=== PATIENT | female | born 1985 | race Caucasian/White ===

== ENCOUNTER 2016-07-10 12:58 | Emergency (ER) | payer OTHER ==
[~2016-07-10] VITALS: Ht 162.6 cm; Wt 87.0 kg
[2016-07-10 13:05] VITALS: TEMP 36.7; Ht 162.6 cm; Wt 87.0 kg
[2016-07-10] MEDS ORDERED: ALBUT/IPRATROP 3MG/0.5MG NEB 3 ML VIAL INH STA (13:16)
[2016-07-10] MEDS ORDERED: METHYLPREDNISOLONE 125 MG VIAL IV STA (13:41)
--- NOTE | 2016-07-10 13:55 | DIAGNOSTIC IMAGING REPORT ---
CHEST ONE VIEW PORTABLE CLINICAL HISTORY: Shortness of breath. Asthma. COMPARISON STUDY: No previous studies for comparison. FINDINGS: The cardiac and mediastinal contours are normal. There is no evidence of focal pulmonary consolidation. There is no evidence of failure. No pleural effusions are visualized.[ IMPRESSION: No active disease in the chest. Electronically signed by: Theo Elilott M.D. 07/10/2016 1:53 PM Dictated Date/Time: 07/10/2016 1:53 PM
--- NOTE | 2016-07-10 14:08 | EMERGENCY ROOM VISIT NOTE ---
History Report prepared by Alfredo: Jeanne Lee Under the Supervision of: Dr. Michael Kasepr D.O. First contact with patient: 13:03 Chief Complaint: RESPIRATORY PROBLEMS Stated Complaint: ASTHMA History of Present Illness The patient is a 30 year old female who presents to the Emergency Room with complaints of persistent SOB starting 5 days ago. The history was obtained from her due to a language barrier. She has a history of asthma since age 12. Her asthma is usually well controlled. She has a nebulizer and inhaler at home which has been using hourly at home for the past 5 days. They are in the process of scheduling an appointment with pulmonology. She reports fever, chest tightness, wheezing, and a cough productive of a yellow mucous. Her children were sick last week with a GI bug. She denies any recent travel or other medical problems. Source of History: spouse/significant other Onset: 5 days ago Position: other (global) Quality: other (SOB) Timing: other (persistent) Associated Symptoms: + chest pain (tightness), + cough, + fevers Note: Pt reports wheezing. Review of Systems See HPI for pertinent positives & negatives. A total of 10 systems reviewed and were otherwise negative. Past Medical & Surgical Medical Problems: (1) Asthma Family History Pt reports no pertinent family history. Social History Smoking Status: Never Smoker Marital Status: Housing Status: lives with family Occupation Status: unemployed Current/Historical Medications Scheduled Budesonide/Formoterol Fumarate (Symbicort 160/4.5 Inhaler ), 2 PUFFS INH BID Budesonide/Formoterol Fumarate (Symbicort 80/4.5 Inhaler), 2 PUFFS INH BID Ipratropium-Albuterol (Duoneb), 1 TREATMENT INH Q4H Prednisone (Prednisone), 2 TAB PO DAILY Allergies Coded Allergies: No Known Allergies (Unverified , 07/10/16) Physical Exam Vital Signs Date Time Temp Pulse Resp B/P Pulse Ox O2 Delivery O2 Flow Rate FiO2 07/10/16 14:18 92 07/10/16 14:16 100 18 104/65 100 Room Air 07/10/16 13:35 Room Air 07/10/16 13:05 36.7 105 18 127/78 97 Room Air Physical Exam CONSTITUTIONAL/VITAL SIGNS: Reviewed / noted above. GENERAL: Non-toxic in appearance. INTEGUMENTARY: Warm, dry, and Norco. HEAD: Normocephalic. EYES: without scleral icterus or trauma. ENT/OROPHARYNX: clear and moist. LYMPHADENOPATHY/NECK: Is supple without lymphadenopathy or meningismus. RESPIRATORY: Expiratory wheezing bilaterally. CARDIOVASCULAR: Regular rate and rhythm. GI/ABDOMEN: Soft and nontender. No organomegaly or pulsatile mass. No rebound or guarding. Normal bowel sounds. EXTREMITIES: Warm and well perfused. BACK: No CVA tenderness. NEUROLOGICAL: Intact without focal deficits. PSYCHIATRIC: normal affect. MUSCULOSKELETAL: Normally developed with good muscle tone. Medical Decision & Procedures ER Provider Diagnostic Interpretation: X ray results and stated below per my interpretation and radiology interpretation. CHEST ONE VIEW PORTABLE CLINICAL HISTORY: Shortness of breath. Asthma. COMPARISON STUDY: No previous studies for comparison. FINDINGS: The cardiac and mediastinal contours are normal. There is no evidence of focal pulmonary consolidation. There is no evidence of failure. No pleural effusions are visualized.[ IMPRESSION: No active disease in the chest. Electronically signed by: Theo Elliott M.D. 07/10/2016 1:53 PM Dictated Date/Time: 07/10/2016 1:53 PM Laboratory Results Test 07/10/16 13:30 Bedside D-Dimer 316 ng/mlFEU (0-450) Bedside Troponin I 0.000 ng/ml (0-0.045) Medications Administered Medications (Trade) Dose Ordered Sig/Juancho Route Start Time Stop Time Status Last Admin Dose Admin Albuterol/ Ipratropium (Duoneb) 3 ml NOW STAT INH 07/10/16 13:16 07/10/16 13:17 DC 07/10/16 13:37 3 ML Methylprednisolone Sodium Succinate (Solu-Medrol IV) 125 mg NOW STAT IV 07/10/16 13:41 07/10/16 13:42 DC 07/10/16 14:13 125 MG ECG Indication: SOB/dyspnea Rate (beats per minute): 82 Rhythm: normal sinus Findings: no ectopy, other (no acute injury) ED Course 1311: At this time the patient was evaluated by the medical student. The students findings were discussed with me. We discussed a possible treatment plan and differential diagnoses for the patient. 1316: Duoneb 3 ml INH. 1341: Solu-Medrol IV 125 mg IV. 1351: Previous medical records were reviewed. The patient was evaluated in room C6. A complete history and physical examination was performed. 1426: On reevaluation, the patient is resting comfortably. I discussed the results and findings with the patient's . He verbalized agreement of the treatment plan. She was discharged home. Medical Decision the differential was considered includes acute myocardial infarction, acute coronary syndrome, myocarditis, pericarditis, pericardial effusions /tamponad, esophageal perforation, pulmonary embolism, pneumonia, pneumothorax, cardiomyopathy, congestive heart, anemia , COPD/asthma exacerbation. This is a 30-year-old female who presents to the ED with a chief complaint of shortness of breath and wheezing. She has a nebulizer at home. She ran out of her orange inhaler 5 days ago. She is to see a physical therapist clinic director and [place] in the near future. She reported some chest tightness and wheezing as well as a productive cough. Her physical exam reveals expiratory wheezing throughout. Her vital signs are stable. She is not hypoxic or tachycardic. Troponin was negative. A d-dimer was negative. Chest x-ray, per my review and the radiologist as negative for acute disease. The patient was treated with a DuoNeb treatment. She was given IV Solu-Medrol. Symptoms improved some. She appears to be relatively comfortable with regards to her breathing. She'll be discharged on prednisone. She was instructed to use her nebulizer every 2-4 hours as needed at home. Impression Primary Impression: Exacerbation of asthma Scribe Attestation The scribe's documentation has been prepared under my direction and personally reviewed by me in its entirety. I confirm that the note above accurately reflects all work, treatment, procedures, and medical decision making performed by me. Departure Information Dispostion Home / Self-Care Prescriptions Prednisone (Prednisone) 20 Mg Tab 2 TAB PO DAILY for 5 Days, #10 TAB Prov: Michael Kasper D.O. 07/10/16 Budesonide/Formoterol Fumarate (Symbicort 80/4.5 Inhaler) Aero 2 PUFFS INH BID for 30 Days, #1 INHALER Prov: Michael Kasper D.O. 07/10/16 Referrals No Doctor, Assigned (PCP) Patient Instructions Asthma - [facility] Additional Instructions Your exam today reveals wheezing in the lungs. This is consistent with exacerbation of asthma. Prednisone as prescribed 40 mg, once daily for the next 5 days. Symbicort as prescribed twice a day. Continue using your albuterol nebulizer at home every 2-4 hours as needed for wheezing or shortness of breath. Follow-up with your habilitation training specialist as soon as possible.
[2016-07-10] MEDS ORDERED: SYMIN160 INH (14:20)
[2016-07-10] MEDS ORDERED: IPRASOL4 INH (14:20)
[2016-07-10] MEDS ORDERED: SYMIN/8045 INH (14:23)
[2016-07-10] MEDS ORDERED: PRED20TA PO (14:23)
[2016-07-10 14:36] VITALS: BP 104/65; PULSE 102; O2SAT 99
== END 2016-07-10 14:37 | disposition home or self-care (01) ==
LOC: C.EDB 13:00 → C.EDC 14:37
DX: J45.901 Unspecified asthma with (acute) exacerbation (principal)

== ENCOUNTER 2016-08-21 15:06 | Emergency (ER) | payer OTHER ==
[~2016-08-21] VITALS: Ht 165.1 cm; Wt 86.5 kg
[~2016-08-21 15:06] MED LIST: IPRASOL4 INH; SYMIN160 INH
[2016-08-21 15:15] VITALS: TEMP 37.1; Ht 165.1 cm; Wt 86.5 kg
[2016-08-21] MEDS ORDERED: ALBUT/IPRATROP 3MG/0.5MG NEB 3 ML VIAL INH STA ×2 (16:29→17:32)
[2016-08-21] MEDS ORDERED: METHYLPREDNISOLONE 125 MG VIAL IV STA (16:29)
[2016-08-21 16:38] VITALS: O2SAT 96
[2016-08-21 16:57] LABS: BASO % 0.7 %; BASO ABS # 0.04 K/uL (0-0.2); COMPLETE YES; EOS % 12.1 %; HEMATOCRIT 39.4 % (37-47); IG% 0.2 %; LYMPH % 41.1 %; LYMPH ABS # 2.34 K/uL (1.2-3.4); MEAN CELL VOLUME 74.6 fL (80-100); MEAN CORPUSCULAR HEMOGLOBIN 23.7 pg (25-34); MEAN CORPUSCULAR HGB CONC 31.7 g/dl (32-36); MEAN PLATELET VOLUME 11.5 fL (7.4-10.4); NEUT % 36.9 %; PLATELET COUNT 251 K/uL (130-400); RED BLOOD COUNT 5.28 M/uL (4.2-5.4); WHITE BLOOD COUNT 5.69 K/uL (4.8-10.8)
[2016-08-21 17:14] LABS: BUN/CREATININE RATIO 11.1 (10-20); CALCIUM 8.3 mg/dl (8.5-10.1); CREATININE 0.67 mg/dl (0.60-1.20); POTASSIUM 3.6 mmol/L (3.5-5.1)
[2016-08-21 17:17] LABS: ALB/GLOB RATIO 1.1 (0.9-2); PREG INTERNAL NEGATIVE QC NEG CLEAR BACKGROUND; PREG INTERNAL POSITIVE QC POS CONTROL LINE
[2016-08-21] MEDS ORDERED: PRED50TA PO (18:51)
[2016-08-21] MEDS ORDERED: SYMIN160 INH (18:51)
[2016-08-21] MEDS ORDERED: PRVHFAIN INH (18:51)
[2016-08-21] MEDS ORDERED: ALBINS/ INH (18:51)
[2016-08-21 18:59] VITALS: BP 120/87; PULSE 98; O2SAT 99
--- NOTE | 2016-08-21 20:50 | EMERGENCY ROOM VISIT NOTE ---
History Report prepared by Alfredo: Emmett Veras Under the Supervision of: Dr. Gaurav Veloz M.D. First contact with patient: 16:16 Chief Complaint: RESPIRATORY PROBLEMS Stated Complaint: ASTHMA Nursing Triage Summary: Patient presents with family with c/o asthma exacerbation that began yesterday History of Present Illness The patient is a 30 year old female who presents to the Emergency Room with complaints of constant, tight breathing beginning yesterday. The patient's states that the patient has a long history of asthma. He notes that the last time she had an episode she was placed on steroids and it helped. The states that she currently uses a nebulizer and Symbicort at home, but she is running out of her supply. He reports, that ever since she was young, she has left leg pain that is a result of the asthma. He notes that they are going home to [facility] within the next four weeks. The states that they are in [place] because he is enrolled in a Masters Program at [employer]. The notes that the patient goes to an asthma specialist every Friday for treatment. He reports that she does not have a PCP. Pt denies LOC , headache, fevers, chills, diaphoresis, visual changes, neck pain, chest pain, nausea, vomiting, abdominal pain, back pain, melena, hematochezia, urinary symptoms, numbness, weakness, lymphadenopathy, rash, or other complaints. Source of History: spouse/significant other Onset: yesterday Position: chest (breathing) Quality: other (tight) Timing: constant Note: Associated symptoms: left-sided leg pain Review of Systems See HPI for pertinent positives and negatives. A total of ten systems were reviewed and were otherwise negative. Past Medical & Surgical Medical Problems: (1) Asthma Family History No pertinent family history stated. Social History Smoking Status: Never Smoker Marital Status: Housing Status: lives with family Occupation Status: unemployed Current/Historical Medications Scheduled Albuterol (Ventolin Hfa), 2 PUFFS INH QID Budesonide/Formoterol Fumarate (Symbicort 160/4.5 Inhaler ), 2 PUFFS INH BID Budesonide/Formoterol Fumarate (Symbicort 160/4.5 Inhaler ), 2 PUFFS INH BID Ipratropium-Albuterol (Duoneb), 1 TREATMENT INH Q4H Prednisone (Prednisone), 50 MG PO DAILY Scheduled PRN Albuterol Sulf (Proventil 0.083% 2.5MG/3ML), 2.5 MG INH QID PRN for Wheezing Allergies Coded Allergies: No Known Allergies (Unverified , 07/10/16) Physical Exam Vital Signs Date Time Temp Pulse Resp B/P Pulse Ox O2 Delivery O2 Flow Rate FiO2 08/21/16 18:59 98 18 120/87 99 08/21/16 17:44 89 18 106/84 96 Room Air 08/21/16 16:38 96 Room Air 08/21/16 16:25 107 20 120/100 97 Room Air 08/21/16 15:15 37.1 118 20 96 Room Air Physical Exam GENERAL: Awake, alert, well-appearing, in no distress HENT: Normocephalic, atraumatic. Oropharynx unremarkable. EYES: Normal conjunctiva. Sclera non-icteric. NECK: Supple. No nuchal rigidity. FROM. No JVD. RESPIRATORY: Inspiratory and expiatory wheezing CARDIAC: normal rhythm. Extremities warm and well perfused. Pulses equal. Borderline tachycardic. ABDOMEN: Soft, non-distended. No tenderness to palpation. No rebound or guarding. No masses. RECTAL: Deferred. MUSCULOSKELETAL: Chest examination reveals no tenderness. The back is symmetrical on inspection without obvious abnormality. There is no CVA tenderness to palpation. No joint edema. LOWER EXTREMITIES: Calves are equal size bilaterally and non-tender. Patel tenderness. No edema. No discoloration. NEURO: Normal sensorium. No sensory or motor deficits noted. SKIN: No rash or jaundice noted. Medical Decision & Procedures Laboratory Results 08/21/16 16:30 Red Blood Count 5.28, Mean Corpuscular Volume 74.6, Mean Corpuscular Hemoglobin 23.7, Mean Corpuscular Hemoglobin Concent 31.7, Mean Platelet Volume 11.5, Neutrophils (%) (Auto) 36.9, Lymphocytes (%) (Auto) 41.1, Monocytes (%) (Auto) 9.0, Eosinophils (%) (Auto) 12.1, Basophils (%) (Auto) 0.7, Neutrophils # (Auto ) 2.10, Lymphocytes # (Auto) 2.34, Monocytes # (Auto) 0.51, Eosinophils # (Auto ) 0.69, Basophils # (Auto) 0.04 08/21/16 16:30 Test 08/21/16 16:30 White Blood Count 5.69 K/uL (4.8-10.8) Red Blood Count 5.28 M/uL (4.2-5.4) Hemoglobin 12.5 g/dL (12.0-16.0) Hematocrit 39.4 % (37-47) Mean Corpuscular Volume 74.6 fL (80-100) Mean Corpuscular Hemoglobin 23.7 pg (25-34) Mean Corpuscular Hemoglobin Concent 31.7 g/dl (32-36) Platelet Count 251 K/uL (130-400) Mean Platelet Volume 11.5 fL (7.4-10.4) Neutrophils (%) (Auto) 36.9 % Lymphocytes (%) (Auto) 41.1 % Monocytes (%) (Auto) 9.0 % Eosinophils (%) (Auto) 12.1 % Basophils (%) (Auto) 0.7 % Neutrophils # (Auto) 2.10 K/uL (1.4-6.5) Lymphocytes # (Auto) 2.34 K/uL (1.2-3.4) Monocytes # (Auto) 0.51 K/uL (0.11-0.59) Eosinophils # (Auto) 0.69 K/uL (0-0.5) Basophils # (Auto) 0.04 K/uL (0-0.2) RDW Standard Deviation 43.6 fL (36.4-46.3) RDW Coefficient of Variation 16.0 % (11.5-14.5) Immature Granulocyte % (Auto) 0.2 % Immature Granulocyte # (Auto) 0.01 K/uL (0.00-0.02) Anion Gap 5.0 mmol/L (3-11) Est Creatinine Clear Calc Drug Dose 134.6 ml/min Estimated GFR () 137.7 Estimated GFR (Non- 118.8 BUN/Creatinine Ratio 11.1 (10-20) Calcium Level 8.3 mg/dl (8.5-10.1) Total Bilirubin 0.4 mg/dl (0.2-1) Aspartate Amino Transf (AST/SGOT) 13 U/L (15-37) Alanine Aminotransferase (ALT/SGPT) 18 U/L (12-78) Alkaline Phosphatase 65 U/L (45-117) Total Protein 7.2 gm/dl (6.4-8.2) Albumin 3.7 gm/dl (3.4-5.0) Globulin 3.5 gm/dl (2.5-4.0) Albumin/Globulin Ratio 1.1 (0.9-2) Human Chorionic Gonadotropin, Qual NEG (NEG) Laboratory results reviewed by me Medications Administered Medications (Trade) Dose Ordered Sig/Juancho Route Start Time Stop Time Status Last Admin Dose Admin Albuterol/ Ipratropium (Duoneb) 3 ml NOW STAT INH 08/21/16 16:29 08/21/16 16:31 DC 08/21/16 16:37 3 ML Methylprednisolone Sodium Succinate (Solu-Medrol IV) 125 mg NOW STAT IV 08/21/16 16:29 08/21/16 16:31 DC 08/21/16 16:37 125 MG Albuterol/ Ipratropium (Duoneb) 3 ml NOW STAT INH 08/21/16 17:32 08/21/16 17:34 DC 08/21/16 17:44 3 ML ECG Indication: SOB/dyspnea Rate (beats per minute): 88 Rhythm: normal sinus Findings: no acute ischemic change, no ectopy ED Course 162: The patient was evaluated in room A04B. A complete history and physical exam was performed. 1629: Ordered Solu-Medrol IV 125mg IV, Duoneb 3ml INH 1732: Ordered Duoneb 3ml INH 1815: I reevaluated the patient and discussed her exam findings with her. She is doing much better. 1899: I reevaluated the patient. Discussed results and discharge instructions: the patient's verbalized understanding and agreement. The patient is ready for discharge. Medical Decision Triage Nursing notes reviewed. The patient's presentation and history were concerning for breathing difficulties and history of asthma. Etiologies such as reactive airway disease, pneumonia, COPD,CHF, cardiac ischemia, pulmonary embolism, pneumothorax, musculoskeletal, infections, gastrointestinal, as well as others were entertained. The patient was evaluated. She was wheezing on examination. She notes a long history of asthma since childhood. The patient was given a nebulizer treatment and Solu-Medrol. She was feeling better. She was given a second treatment. On reassessment the patient had clearing of her wheezing. She felt well and desired discharge. Her laboratory testing was unremarkable. The patient declined chest x-ray imaging.I gave my usual and customary discussion regarding this issue. The patient is out of her albuterol nebulizer solution. She does not have a Proventil rescue inhaler. Patient is taking Symbicort but is almost out. The patient will be placed on prednisone for 4 days. She will use albuterol MDI. She was also given a prescription for nebulizer solution. The patient was also given a Symbicort inhaler prescription. The patient wishes to follow-up with [facility] pulmonology. She was referred. This seems to be most consistent with a asthma exacerbation given her long history of the same and response to treatment. By the evaluation outlined above other emergent etiologies such as those listed in the differential, as well as others, were deemed relatively unlikely. The patient and were informed about the findings as listed above. All questions were answered and they were pleased with the treatment. Return instructions were outlined and the patient was discharged in stable condition. The patient was referred to pulmonology for follow-up for a recheck of the current condition. The chart was completed utilizing [employer] Speech voice recognition software. Grammatical errors, random word insertions, pronoun errors, and incomplete sentences are an occasional consequence of this system due to software limitations, ambient noise, and hardware issues. Any formal questions or concerns about the content, text, or information contained within the body of this dictation should be directly addressed to the physician for clarification. Impression Primary Impression: Reactive airway disease Scribe Attestation The scribe's documentation has been prepared under my direction and personally reviewed by me in its entirety. I confirm that the note above accurately reflects all work, treatment, procedures, and medical decision making performed by me. Departure Information Dispostion Home / Self-Care Prescriptions Budesonide/Formoterol Fumarate (Symbicort 160/4.5 Inhaler ) Aero 2 PUFFS INH BID, #1 INHALER Prov: Gaurav Veloz MD 08/21/16 Albuterol Sulf (PROVENTIL 0.083% 2.5MG/3ML) 2.5 Mg/3 Ml Nebu 2.5 MG INH QID Y for Wheezing, #1 EA 1 Refill Prov: Gaurav Veloz MD 08/21/16 Albuterol (Ventolin Hfa) 60 Puffs/5400 Mcg Aers 2 PUFFS INH QID for 5 Days, #1 INHALER Prov: Gaurav Veloz MD 08/21/16 Prednisone (Prednisone) 50 Mg Tab 50 MG PO DAILY for 4 Days, #4 TAB Prov: Gaurav Veloz MD 08/21/16 Referrals No Doctor, Assigned (PCP) Forms HOME CARE DOCUMENTATION FORM, IMPORTANT VISIT INFORMATION, WORK / SCHOOL INSTRUCTIONS Patient Instructions My [facility] Additional Instructions ASTHMA INSTRUCTIONS: Symbicort inhaler as prescribed. Albuterol Inhaler: Take 2 puffs four times daily for five days, then as needed. or Albuterol nebulizer every 4-6 hours as needed for asthma attack. Prednisone 50mg: Once daily until the prescription is finished. It is best to take this earlier in the day as some patients note occasional difficulty falling asleep when taken in the late evening. Acetaminophen(Tylenol) may be used for fever or pain. Use 1000mg every six hours as needed. Avoid using more than 4000mg in a 24 hour period. Rest and drink plenty of fluids. Avoid smoke/smoking, fumes, dust, or any triggers in the past that may have affected your breathing. Continue current medications. Return to the ER for chest pain, difficulty breathing, fevers, vomiting, worsening of your condition, or as needed. Follow up with [facility] pulmonology this week for a recheck of your current condition. The number is listed below under Dr. Keith.
== END 2016-08-21 19:00 | disposition home or self-care (01) ==
LOC: C.EDB 15:08 → C.EDA 19:00
DX: J45.909 Unspecified asthma, uncomplicated (principal); Z79.899 Other long term (current) drug therapy

== ENCOUNTER 2016-09-04 00:17 | Emergency (ER) | payer OTHER ==
[~2016-09-04] VITALS: Ht 167.6 cm; Wt 84.8 kg
[~2016-09-04 00:17] MED LIST changes: +ALBINS/ INH
[2016-09-04 00:33] VITALS: TEMP 36.7; Ht 167.6 cm; Wt 84.8 kg
[2016-09-04] MEDS ORDERED: ALBINS/ INH (00:46)
[2016-09-04] MEDS ORDERED: IBUP-103 PO (00:47)
[2016-09-04] MEDS ORDERED: ALBUT/IPRATROP 3MG/0.5MG NEB 3 ML VIAL INH STA ×2 (01:06→01:59)
[2016-09-04] MEDS ORDERED: DEXAMETHASONE SOD INJ 10 MG/ML VIAL PO ONE (01:15)
[2016-09-04] MEDS ORDERED: FLUTICASONE/SALMETEROL (ADVAIR) 500/50 INH 14 PUFF INH STA (01:17)
[2016-09-04 01:38] VITALS: O2SAT 97
[2016-09-04] MEDS ORDERED: PRED50TA PO (02:24)
--- NOTE | 2016-09-04 02:24 | EMERGENCY ROOM VISIT NOTE ---
History First contact with patient: 00:38 Chief Complaint: RESPIRATORY PROBLEMS Stated Complaint: ASTHMA Nursing Triage Summary: pt presents to main ED with . to translate for pt. reports problems with asthma for "a long time." states it has been worse for 4 days. reports coughing up "a lot." reports sob and bilateral shoulder/upper chest pain. pt has hx asthma. pt alert and oriented x4. pt breathing regularly and independently. History of Present Illness The patient is a 30 year old female who presents to the Emergency Room with complaints of cough and wheezing for the past few days who has asthma. This is her third exacerbation this month. She has not seen a motor scooter mechanic. Patient complains of cough and wheezing. No fevers. She's had nighttime coughing and daytime coughing with using her nebulizers with minimal improvement of symptoms. Patient denies fever, chills, productive cough, abdominal pain, leg pain or swelling. Patient is flying back to [place] next week for [place] without. She has been fasting. Review of Systems See HPI for pertinent positives & negatives. A total of 10 systems reviewed and were otherwise negative. Past Medical/Surgical History Medical Problems: (1) Asthma Social History Smoking Status: Never Smoker Smokeless Tobacco Use: No Alcohol Use: none Drug Use: none Marital Status: Housing Status: lives with family Occupation Status: unemployed Current/Historical Medications Scheduled Albuterol Sulf (Proventil 0.083% 2.5MG/3ML), 2.5 MG INH QID Budesonide/Formoterol Fumarate (Symbicort 160/4.5 Inhaler ), 2 PUFFS INH BID Scheduled PRN Ibuprofen Tab (Advil), 200-600 MG PO DIRECTED PRN for Pain or Fever Allergies Coded Allergies: No Known Allergies (Unverified , 09/04/16) Physical Exam Vital Signs Date Time Temp Pulse Resp B/P Pulse Ox O2 Delivery O2 Flow Rate FiO2 09/04/16 01:38 97 Room Air 09/04/16 01:38 93 18 113/70 97 Room Air 09/04/16 01:17 Room Air 09/04/16 00:33 36.7 96 20 118/77 98 Room Air Physical Exam PHYSICAL EXAM: Vital Signs: Reviewed Nurse's notes. Oxygen saturation was 98% on room air. GENERAL: Pleasant female, Alert, oriented and coherent. The patient is able to speak in complete sentences. NECK: Supple, non-tender. CHEST : Symmetrical expansion. no retractions no accessory muscle use. HEART: Regular rate and normal heart sounds, no murmur, gallop or rub. LUNGS: Breath sounds equal but significantly diminished in intensity on both sides. Bilateral wheezes heard but no rales or pleuritic rub. SKIN: The skin was without rashes, erythema, edema, or bruising. There is no tenting of the skin. Capillary reflex less than 2 seconds. HEAD: Normocephalic atraumatic. EARS: External auditory canals clear, tympanic membranes pearly cain without erythema or effusion bilaterally. EYES: Pupils equal round and reactive to light and accommodation. Conjunctivae without injection, sclerae without icterus. Extraocular movements intact. NOSE: Patent, turbinates without inflammation or discharge. No sinus tenderness. MOUTH: Mucous membranes moist. Pharynx without erythema or exudate. Uvula midline. Airway patent. Tongue does not deviate. ABDOMEN: Positive bowel sounds x 4. Normal tympanic percussion. Soft, nontender, without masses or organomegaly. Rios sign negative. No guarding or rebound tenderness. MUSCULOSKELETAL: No muscle atrophy, erythema, or edema noted. NEURO: Patient was alert and oriented to person place and time. Normal sensation to light and sharp touch. No focal neurological deficits. Medical Decision & Procedures Medications Administered Medications (Trade) Dose Ordered Sig/Juancho Route Start Time Stop Time Status Last Admin Dose Admin Albuterol/ Ipratropium (Duoneb) 3 ml NOW STAT INH 09/04/16 01:06 09/04/16 01:08 DC 09/04/16 01:13 3 ML Dexamethasone Sodium Phosphate (Decadron Inj) 10 mg NOW ONCE PO 09/04/16 01:15 09/04/16 01:16 DC 09/04/16 01:13 10 MG Salmeterol Xinafoate/ Fluticasone (Advair Diskus 500/50 Inh) 1 puff NOW STAT INH 09/04/16 01:17 09/04/16 01:18 DC 09/04/16 01:36 1 PUFF Albuterol/ Ipratropium (Duoneb) 3 ml NOW STAT INH 09/04/16 01:59 09/04/16 02:00 DC 09/04/16 02:05 3 ML ED Course Prior records/ancillary studies reviewed. Triage Nursing notes reviewed. Additional history obtained from the family. The patient's history was concerning for respiratory difficulties. Differential diagnosis: Etiologies such as infections, reactive airway disease, pneumonia, pneumothorax , COPD, CHF, cardiac ischemia, pulmonary embolism, musculoskeletal, gastrointestinal, as well as others were entertained. Physical examination: As above. ER treatment provided: Nebulizer, Decadron, Advair On reassessment the patient felt better. Diagnostic interpretation by me: Deferred Consultation: A consultation was placed with the pharmacistCassie. The case was discussed and diagnostics were reviewed. Pharmacist agrees to starting Advair for the patient's moderate persistent symptoms of asthma as she is flying back this week to [facility] and will not be able to get in with pulmonology before she goes. This appears to be consistent with asthma exacerbation that is moderate persistent. Patient's been having nighttime symptoms 3-4 times a night and using her rescue inhaler and nebulizer daily. This is her third exacerbation that is brought to the ER this past month. Case management will help the patient make an appointment with pulmonology when she returns to [facility]. She is advised take medications as directed and to follow-up with pulmonology when she returns or here in the ER sooner for chest pain, difficulty breathing, fevers, worsening signs or symptoms or as needed. Patient was well-appearing. She had great improvement after being medicated as above. She was not hypoxic. She is speaking in full sentences. By the evaluation outlined above emergent etiologies such as CHF, cardiac ischemia, pulmonary embolism, pneumonia, pneumothorax, musculoskeletal, serious bacterial infections, as well as others were deemed relatively unlikely. The pt informed about the findings as listed above. All questions were answered and pleased with the treatment. Return instructions were outlined and the patient was discharged in stable condition. Outpatient prescription management: advair, prednisone Referral: The patient was referred back to their primary care physician and pulm for follow-up in 2 to 3 days for a recheck of the current condition. case reviewed with my Attending Medical Decision As above Impression Primary Impression: Asthma with acute exacerbation Departure Information Dispostion Home / Self-Care Condition GOOD Referrals No Doctor, Assigned (PCP) Patient Instructions My [facility] Additional Instructions Albuterol Inhaler: Take 2 puffs four times daily for five days, then as needed. Prednisone 50mg: Once daily until the prescription is finished. It is best to take this earlier in the day as some patients note occasional difficulty falling asleep when taken in the late evening. Advair 500 mg/50 m twice a day. Acetaminophen(Tylenol) may be used for fever or pain. Use 1000mg every six hours as needed. Avoid using more than 3000mg in a 24 hour period. (AND/OR) Ibuprofen(Motrin, Advil) may be used for fever or pain. Use 600mg every six hours as needed. Take with food. Avoid using more than 2400mg in a 24 hour period. Do not use 2400mg per day for more than three consecutive days without physician direction. Prolonged inappropriate use can lead to stomach upset or ulcers. Rest and drink plenty of fluids. Avoid smoke/smoking, fumes, dust, or any triggers in the past that may have affected your breathing. Continue current medications. Return to the ER for chest pain, difficulty breathing, fevers, vomiting, worsening of your condition, or as needed. Follow up with your primary physician and pulmonology this week for a recheck of your current condition. Problem Qualifiers Primary Impression: Asthma with acute exacerbation Asthma severity: moderate persistent Qualified Codes: J45.41 - Moderate persistent asthma with (acute) exacerbation
[2016-09-04] MEDS ORDERED: ALBUTEROL HFA 8 GM INHALER INH ONE (02:31)
[2016-09-04 02:36] VITALS: BP 114/65; PULSE 88; O2SAT 96
== END 2016-09-04 02:36 | disposition home or self-care (01) ==
LOC: C.EDB 00:18 → C.EDA 02:36
DX: J45.41 Moderate persistent asthma with (acute) exacerbation (principal)

== ENCOUNTER → 2016-12-03 | Outpatient (CLI) | payer OTHER ==
[~2016-12-03] MED LIST changes: +IBUP-103 PO; -IPRASOL4 INH
--- NOTE | 2016-12-03 14:57 | DIAGNOSTIC IMAGING REPORT ---
(CHEST) THORAX WITHOUT CLINICAL HISTORY: 30 years-old Female presenting with chronic cough. TECHNIQUE: Multidetector CT imaging of the chest was performed without the use of intravenous contrast. IV contrast: None. A dose lowering technique was used consistent with the principles of ALARA (as low as reasonably achievable). COMPARISON: Chest x-ray from 07/10/2016. CT DOSE (mGy.cm): The estimated cumulative dose is 181.87 mGy.cm. FINDINGS: Tailing Hand topogram: Unremarkable. On soft tissue windows, normal thyroid and thoracic inlet. No axillary, supraclavicular, hilar, or mediastinal lymphadenopathy. Normal aorta. Normal heart size. No pericardial or pleural effusion. Spleen top normal in size and only partially included within the [id number]. On lung windows, mild bronchial wall thickening. Subtle mosaic attenuation in the lower lobes could suggest small airways disease. Punctate 2 mm solid pulmonary nodule in the right middle lobe (series 4 image 139). Minimal tree-in-bud opacities noted in the left lung base in the lateral costophrenic sulcus. On bone windows, normal osseous structures. IMPRESSION: 1. Subtle findings of mild bronchial wall thickening subtle mosaic attenuation and lower lobes are this could be consistent with reactive airways disease, however, given the additional findings of minimal tree-in-bud opacities in the left lung base, infectious bronchiolitis should be considered. Atypical pathogens such as mycoplasma and mycobacterium avium intracellulare can result in an infectious bronchiolitis pattern among other etiologies. Electronically signed by: Leandro Jeter M.D. 12/03/2016 2:55 PM Dictated Date/Time: 12/03/2016 2:51 PM
== END | disposition home or self-care (01) ==
LOC: C.CTS 14:28
PROVIDERS: ATTEND Internal Medicine Critical Care Medicine
DX: R05 Cough (principal)

== ENCOUNTER 2022-02-22 08:50 | Inpatient (IN) ==
--- NOTE | 2022-02-19 10:56 | Anesthesiology Consultation ---
Date of Service February 19, 2022 Assessment & Plan (1) Encounter for pre-operative examination: - COVID screening: Per assessment on 02/19: No known COVID-19 positive contacts or current COVID-19 related symptoms. Travel screen negative. Patient vaccinated. At surgeon discretion if preop Covid testing being done. - Decision Support Analyst needed: Indonesian. L&D made aware. 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 History Surgery Operation Date: 02/22/22 08:50 Proposed Procedures p Section in LD (Delivery of Baby through Abdominal incision) - Vero Veloz MD, FACOG Height/Weight Height: 5 ft 4.96 in Weight: 83.461 kg Allergies Allergy/AdvReac Type Severity Reaction Status Date / Time No Known Allergies Allergy Verified 02/19/22 10:04 Medications Home Medications Medication Instructions Recorded Confirmed Last Taken budesonide-formoterol HFA 160 1 puff inhalation BID #10.2 grams 08/16/21 02/19/22 12/29/21 mcg-4.5 mcg/actuation aerosol inhaler (Symbicort) albuterol sulfate 90 mcg/actuation 2 puff inhalation Q4 PRN Wheezing 11/20/21 02/19/22 Unknown aerosol inhaler #8.5 grams tiotropium bromide 1.25 2 puff inhalation QAM 02/19/22 02/19/22 Unknown mcg/actuation mist for inhalation (Spiriva Respimat) Past Medical History Medical History Eosinophilic asthma size inconsistent with dates GERD without esophagitis History of COVID-19 Dx 07/03/20- end up having a miscarriage due to covid, no symptoms now Rhinitis Past Family History Family History Other No family history of adverse response to anesthesia Denies family history of Ovarian cancer Prostate cancer Breast cancer Colorectal cancer Past Surgical History Surgical History No pertinent past surgical history Social History Smoking Status: Never smoker Do You Dip or Chew Tobacco: No Hx Alcohol Use: No Hx Substance Use: No substance use type: does not use Testing Electrocardiogram Date: 07/08/21 Findings: + NSR @ (73)
[~2022-02-22 08:50] MED LIST changes: -ALBINS/ INH; +CITRIC ACID/SODIUM CITRATE 15 ML UDC PO SCH; -IBUP-103 PO; +LACTATED RINGER'S 1,000 ML IV SCH; -SYMIN160 INH; +ceFAZolin 3,000 MG in DEXTROSE 5% 50 ML IV SCH
[2022-02-22] MEDS ORDERED: OXYTOCIN 30 UNITS/500 ML BAG IV PRN ×3 (09:45→23:01)
[2022-02-22] MEDS ORDERED: LIDOCAINE 1% LOCAL 20 ML VIAL INFIL PRN (09:45)
[2022-02-22] MEDS ORDERED: ALBUTEROL HFA 8 GM INHALER INH PRN (09:47)
--- NOTE | 2022-02-22 10:11 | History & Physical Report ---
Date of Service February 22, 2022 Assessment & Plan (1) IUGR (intrauterine growth restriction) affecting care of mother: Plan: IUP at 39 weeks with IUGR now for IOL because now cephalic as confirmed again by ultrasound this morning begin pitocin augmentation epidural when requested anticipate vaginal Admission and Anticipated Discharge Date Admission Date: February 22, 2022 History of Present Illness Primary Care Provider: Stefanie Glaser Patient is a 36 yo EDC [birth year] who presents for IOL because of IUGR. testing has been reassuring. She had been breech until last week. GBS- negative Allergies Allergy/AdvReac Type Severity Reaction Status Date / Time No Known Allergies Allergy Verified 02/21/22 12:04 Home Medications Medication Instructions Recorded Confirmed Type budesonide-formoterol HFA 160 1 puff inhalation BID #10.2 grams 08/16/21 02/21/22 Rx mcg-4.5 mcg/actuation aerosol inhaler (Symbicort) albuterol sulfate 90 mcg/actuation 2 puff inhalation Q4 PRN Wheezing 11/20/21 02/21/22 Rx aerosol inhaler #8.5 grams tiotropium bromide 1.25 2 puff inhalation QAM 02/19/22 02/21/22 History mcg/actuation mist for inhalation (Spiriva Respimat) Patient History Medical History Eosinophilic asthma size inconsistent with dates GERD without esophagitis History of COVID-19 Dx 07/03/20- end up having a miscarriage due to covid, no symptoms now Rhinitis Surgical History No pertinent past surgical history Family History Other No family history of adverse response to anesthesia Denies family history of Ovarian cancer Prostate cancer Breast cancer Colorectal cancer Social History Smoking Status: Never smoker Second Hand Exposure: No; Do You Dip or Chew Tobacco: No; Tobacco Cessation Education Requested by Patient: No Hx Alcohol Use: No Hx Substance Use: No Preferred Language: Hebrew Communication Ability: Impaired Communication Ability Comment: pt can not speak/read swedish, CAN and does interprete for pt Communication Tools: IPad Hand Ornament Maker Required: Yes Beliefs That Will Affect Care: None marital status: marital status details: Corrie Carter(36) [phone] Current Living Situation: Spouse and Family Current Living Situation Comment: lives with and 4 kids current occupational status: unemployed current occupation: homemaker Other Information That Helps Us Care for You: No Assistive Devices: None Review of Systems All systems reviewed & are unremarkable except as noted in HPI & below Physical Exam Constitutional: WD/WN, vitals as above Psychiatric: A+Ox3, euthymic affect Genitourinary: OB Exam Abdomen: + vertex (confirmed by ultrasound today) and + estimated weight (5-6 pounds) Manual OB Exam: + cervical dilation 2 cm, + cervical effacement 50% and + station (-3) OB Exam Monitor Tracing: + external FHT monitor used, + external uterine monitor used, + category I and + normal FHT variability Code Status & VTE Plan VTE Prophylaxis Plan VTE Prophylaxis will be ordered: No Coding Level of Care Code None Diagnoses IUGR (intrauterine growth restriction) affecting care of mother O36.5990
[2022-02-22 10:24] LABS: Hematocrit (blood only) 36.7 % (34.1-44.9); Hemoglobin 11.4 g/dl (12.0-16.0); Mean Corpuscular Hemoglobin 23.1 pg (25.0-34.0); Mean Corpuscular Hgb Conc 31.1 g/dL (32.0-36.0); Mean Corpuscular Volume 74.4 fL (80.0-100.0); Mean Platelet Volume 11.3 fL (9.4-12.3); Platelet Count 229 K/uL (130-400); RDW Coefficient of Variation 16.4 % (11.5-14.5); RDW Standard Deviation 43.8 fL (36.4-46.3); Red Blood Count 4.93 M/uL (3.93-5.22); White Blood Count 5.31 K/ul (4.8-10.8)
[2022-02-22] MEDS: LACTATED RINGER'S 1,000 ML IV PRN ×3 (11:00→20:23)
[2022-02-22] MEDS ORDERED: fentaNYL citrate 100 MCG/2 ML VIAL ONE (11:37)
[2022-02-22] MEDS ORDERED: ePHEDrine sulfate 50 MG/ML AMP ONE (11:37)
[2022-02-22] MEDS ORDERED: BUPIVACAINE 0.25% 30 ML VIAL ONE (11:37)
[2022-02-22] MEDS ORDERED: SODIUM CHLORIDE 0.9% INJ 10 ML VIAL ONE (11:37)
[2022-02-22] MEDS ORDERED: LIDOCAINE 2%/EPINEPHRINE 1:200,000 20 ML SDV ONE (11:38)
[2022-02-22] MEDS ORDERED: fentaNYL 2MCG/ML ROPIVACAINE 1.25MG/ML 100 ML BAG EPI ONE (11:38)
[2022-02-22] MEDS ORDERED: fentaNYL 2MCG/ML ROPIVACAINE 1.25MG/ML 100 ML BAG EPI PRN (12:16)
[2022-02-22] MEDS ORDERED: ePHEDrine sulfate 50 MG/ML AMP IV PRN (12:16)
[2022-02-22] MEDS ORDERED: NALBUPHINE HCL INJ 10 MG/ML AMP IV PRN (12:16)
[2022-02-22] MEDS ORDERED: NALOXONE HCL 1 MG in SODIUM CHLORIDE 0.9% 1000ML 1,000 ML IV PRN (12:16)
[2022-02-22] MEDS ORDERED: NALOXONE HCL 0.4 MG/1 ML VIAL/CARP IV PRN (12:16)
[2022-02-22] MEDS ORDERED: diphenhydrAMINE 50 MG/ML VIAL IV PRN (12:16)
[2022-02-22] MEDS ORDERED: ONDANSETRON INJ 2 MG/ML 2 ML VIAL IV PRN (12:16)
--- NOTE | 2022-02-22 12:18 | Anesthesiology Consultation ---
Date of Service February 22, 2022 Assessment & Plan Chart Review Chart Review: Patient NOT seen in Pre Admission Testing and Acceptable Risk for Labor Epidural Consults Requested none ASA ASA2 Proposed Anesthesia Anesthesia Type: Labor Epidural and CSE Risk / Benefits Reviewed With: PT / POA / Parent / Guardian, Accepts Plan and Informed Consent Obtained History Surgery Operation Date: 02/22/22 08:50 Proposed Procedures p Section - Vero Veloz MD, FACOG Height/Weight Height: 5 ft 4.96 in Weight: 109.316 kg Allergies Allergy/AdvReac Type Severity Reaction Status Date / Time No Known Allergies Allergy Verified 02/21/22 12:04 Medications Home Medications Medication Instructions Recorded Confirmed Last Taken tiotropium bromide 1.25 2 puff inhalation BID 02/19/22 02/22/22 02/21/22 18:00 mcg/actuation mist for inhalation (Spiriva Respimat) albuterol sulfate 90 mcg/actuation 2 puff inhalation BID 02/22/22 02/22/22 02/21/22 18:00 aerosol inhaler budesonide-formoterol HFA 160 2 puff inhalation BID 02/22/22 02/22/22 02/21/22 18:00 mcg-4.5 mcg/actuation aerosol inhaler (Symbicort) NPO Date Last Intake of Fluids: 02/22/22 Time Last Intake of Fluids: 11:00 Date Last Intake of Solids: 02/22/22 Time Last Intake of Solids: 07:00 Past Medical History Medical History Eosinophilic asthma size inconsistent with dates GERD without esophagitis History of COVID-19 Dx 07/03/20- end up having a miscarriage due to covid, no symptoms now Rhinitis Exercise / Class Metabolic Activity II 4-5 Yardwork/Stairs/Walk up hill Past Family History Family History Other No family history of adverse response to anesthesia Denies family history of Ovarian cancer Prostate cancer Breast cancer Colorectal cancer Past Surgical History Surgical History No pertinent past surgical history Past Anesthesia History No Hx of Anesthesia Complications and No Family Hx of Anesthesia Complications History of PONV No Hx of PONV and No Hx of Motion Sickness Social History Smoking Status: Never smoker Do You Dip or Chew Tobacco: No Hx Alcohol Use: No Hx Substance Use: No substance use type: does not use Review of Systems no chest pain or sob Physical Exam Vital Signs Last Vital Signs Temp 36.9 C 02/22/22 10:28 Pulse 88 02/22/22 12:12 Resp 20 02/22/22 10:28 BP 137/83 02/22/22 12:09 Pulse Ox 100 02/22/22 12:12 ENMT Mouth: no TMJ abnormality Thyromental Distance: > or= 3.5 Finger Breadths Mallampati Class: II Neck normal visual inspection Respiratory normal respiratory effort Auscultation: lungs clear to auscultation bilaterally Cardiovascular Rate/Rhythm: regular rate and regular rhythm Musculoskeletal Spine: normal cervical ROM Neurologic moves all extremities Psychiatric Orientation: alert and oriented x 3 Testing Laboratory Results 02/22/22 10:35 Blood Type B Positive 02/22/22 09:45 Antibody Screen NEGATIVE 02/22/22 09:45 Electrocardiogram Date: 07/08/21 Findings: + NSR @ (73)
[2022-02-22] MEDS ORDERED: Flu Vaccine (Flucelvax) 0.5mL SYR **Egg-Free IM ONE (15:00)
--- NOTE | 2022-02-22 18:00 | Labor Progress Brief Note ---
Date of Service February 22, 2022 Subjective Comfortable w/ epidural Assessment & Plan (1) IUGR (intrauterine growth restriction) affecting care of mother: Plan: 36 yo at 39 wga admitted for IOL for FGR VSS Fetus cat 1 Labor - pit started and at 3, now s/p arom. Continue induction GBS neg epidurla in place Admission and Anticipated Discharge Date Admission Date: February 22, 2022 Physical Exam Genitourinary: Manual OB Exam: + cervical dilation 4 cm, + cervical effacement 70%, + station -2 and + amniotic fluid (AROM clear) OB Exam Monitor Tracing: + external FHT monitor used, + external uterine monitor used (q4) and + category I (145/mod/+accel/-decel) Results & Data ([facility]) Vital Signs (Past 12 Hours) Vital Signs Temp Pulse Resp BP Pulse Ox 02/22/22 15:44 98.8 F 18 02/22/22 10:28 98.4 F 20 02/22/22 17:57 92 02/22/22 17:57 100 H 02/22/22 17:52 93 02/22/22 17:52 106 H 02/22/22 17:51 91 02/22/22 17:51 87 02/22/22 17:49 90 02/22/22 17:49 172/69 H 02/22/22 17:47 96 02/22/22 17:47 82 02/22/22 17:45 91 02/22/22 17:45 75 02/22/22 17:42 99 02/22/22 17:42 69 02/22/22 17:40 92 02/22/22 17:40 75 02/22/22 17:37 99 02/22/22 17:37 68 02/22/22 17:34 90 02/22/22 17:34 92 H 02/22/22 17:32 100 02/22/22 17:32 83 02/22/22 17:27 99 02/22/22 17:27 92 H 02/22/22 17:24 94 02/22/22 17:24 82 02/22/22 17:22 97 02/22/22 17:22 100 H 02/22/22 17:19 97 H 02/22/22 17:19 124/79 02/22/22 17:17 99 02/22/22 17:17 85 11/18/22 17:17 93 02/22/22 17:17 96 H 02/22/22 17:12 99 02/22/22 17:12 77 02/22/22 17:09 91 02/22/22 17:09 111 H 02/22/22 17:07 100 02/22/22 17:07 96 H 02/22/22 17:03 103 H 02/22/22 17:03 129/66 02/22/22 17:02 98 02/22/22 17:02 96 H 02/22/22 16:57 99 02/22/22 16:57 108 H 02/22/22 16:52 99 02/22/22 16:52 96 H 02/22/22 16:48 78 02/22/22 16:48 131/64 02/22/22 16:47 97 02/22/22 16:47 94 H 02/22/22 16:42 99 02/22/22 16:42 88 02/22/22 16:37 97 02/22/22 16:37 82 02/22/22 16:34 86 02/22/22 16:34 145/68 H 02/22/22 16:32 98 02/22/22 16:32 83 02/22/22 16:19 98.2 F 02/22/22 16:27 99 02/22/22 16:27 97 H 02/22/22 16:26 91 02/22/22 16:26 99 H 02/22/22 16:22 98 02/22/22 16:22 93 H 02/22/22 16:19 99 H 02/22/22 16:19 120/70 02/22/22 16:17 98 02/22/22 16:17 78 02/22/22 16:12 98 02/22/22 16:12 109 H 02/22/22 16:07 99 02/22/22 16:07 78 02/22/22 16:04 74 02/22/22 16:04 132/75 02/22/22 16:02 99 02/22/22 16:02 80 02/22/22 15:57 99 02/22/22 15:57 75 02/22/22 15:52 99 02/22/22 15:52 94 H 02/22/22 15:50 89 02/22/22 15:50 145/81 H 02/22/22 15:47 99 02/22/22 15:47 72 02/22/22 15:42 97 02/22/22 15:42 86 02/22/22 15:41 91 02/22/22 15:41 92 H 02/22/22 15:37 100 02/22/22 15:37 79 02/22/22 15:34 78 02/22/22 15:34 115/72 02/22/22 15:32 99 02/22/22 15:32 88 02/22/22 15:27 99 02/22/22 15:27 78 02/22/22 15:22 100 02/22/22 15:22 72 02/22/22 15:17 100 02/22/22 15:17 92 H 02/22/22 15:12 99 02/22/22 15:12 82 02/22/22 15:07 98 02/22/22 15:07 79 02/22/22 15:04 71 02/22/22 15:04 148/76 H 02/22/22 15:02 100 02/22/22 15:02 69 02/22/22 14:57 100 02/22/22 14:57 86 02/22/22 14:54 92 02/22/22 14:54 87 02/22/22 14:52 100 02/22/22 14:52 80 02/22/22 14:49 91 H 02/22/22 14:49 133/71 02/22/22 14:47 98 02/22/22 14:47 93 H 02/22/22 14:45 93 02/22/22 14:45 82 02/22/22 14:42 95 02/22/22 14:42 81 02/22/22 14:40 93 02/22/22 14:40 86 02/22/22 14:37 100 02/22/22 14:37 84 02/22/22 14:34 79 02/22/22 14:34 119/82 02/22/22 14:32 99 02/22/22 14:32 75 02/22/22 14:27 99 02/22/22 14:27 99 H 02/22/22 14:22 98 02/22/22 14:22 87 02/22/22 14:18 76 02/22/22 14:18 121/82 02/22/22 14:17 97 02/22/22 14:17 80 02/22/22 14:12 98 02/22/22 14:12 82 02/22/22 14:07 97 02/22/22 14:07 73 02/22/22 14:04 74 02/22/22 14:04 116/75 02/22/22 14:02 94 02/22/22 14:03 92 02/22/22 14:02 85 02/22/22 14:03 87 02/22/22 13:57 98 02/22/22 13:57 76 02/22/22 13:52 91 02/22/22 13:52 87 02/22/22 13:52 91 02/22/22 13:52 94 H 02/22/22 13:49 81 02/22/22 13:49 119/58 L 02/22/22 13:47 97 02/22/22 13:47 82 02/22/22 13:42 97 02/22/22 13:42 78 02/22/22 13:40 92 02/22/22 13:40 84 02/22/22 13:37 97 02/22/22 13:37 70 02/22/22 13:33 75 02/22/22 13:33 131/78 02/22/22 13:32 98 02/22/22 13:32 72 02/22/22 13:27 99 02/22/22 13:27 64 02/22/22 13:22 98 02/22/22 13:22 74 02/22/22 13:18 75 02/22/22 13:18 121/77 02/22/22 13:17 99 02/22/22 13:17 74 02/22/22 13:12 97 02/22/22 13:12 79 02/22/22 13:07 98 02/22/22 13:07 77 02/22/22 13:03 92 02/22/22 13:03 86 02/22/22 13:02 95 02/22/22 13:02 86 02/22/22 13:01 74 02/22/22 13:01 123/81 02/22/22 12:57 98 02/22/22 12:57 85 02/22/22 12:57 81 02/22/22 12:57 134/82 02/22/22 12:52 98 02/22/22 12:52 83 02/22/22 12:51 75 02/22/22 12:51 129/83 02/22/22 12:47 98 02/22/22 12:47 81 02/22/22 12:46 77 02/22/22 12:46 125/74 02/22/22 12:42 98 02/22/22 12:42 72 02/22/22 12:40 77 02/22/22 12:40 129/67 02/22/22 12:37 97 02/22/22 12:37 73 02/22/22 12:36 82 02/22/22 12:36 134/85 02/22/22 12:33 79 02/22/22 12:33 132/95 02/22/22 12:32 93 02/22/22 12:32 92 H 02/22/22 12:27 100 02/22/22 12:27 86 02/22/22 12:22 100 02/22/22 12:22 99 H 02/22/22 12:17 100 02/22/22 12:17 85 02/22/22 12:12 100 02/22/22 12:12 88 02/22/22 12:09 77 02/22/22 12:09 137/83 02/22/22 12:07 99 02/22/22 12:07 77 02/22/22 10:44 77 02/22/22 10:44 131/91 02/22/22 10:07 83 129/86 Coding Level of Care Code None Diagnoses IUGR (intrauterine growth restriction) affecting care of mother O36.5990
[2022-02-22] MEDS: ALBUTEROL HFA 8 GM INHALER INH SCH (20:09)
[2022-02-22] MEDS ORDERED: NURSING L&D Epidural Breakthrough Pain Update ONE (21:14)
--- NOTE | 2022-02-22 22:22 | Delivery Summary ---
Vaginal Delivery Summary Date of Service February 22, 2022 Vaginal Delivery Summary and 2nd Degree LAC PREOPERATIVE DIAGNOSIS: 1. Single intrauterine at 39 wga 2. growth restriction 3. Asthma 4. Anemia POSTOPERATIVE DIAGNOSIS: 1. Single intrauterine at 39 wga 2. growth restriction 3. Asthma 4. Anemia 5. Delivered PROCEDURE: 1. Normal spontaneous vaginal delivery. SURGEON: Suzi Arredondo MD ANESTHESIA: Epidural. ESTIMATED BLOOD LOSS: 300 mL FLUIDS: Continuous LR. URINE OUTPUT: None. COMPLICATIONS: None. CONDITION: Stable. INDICATIONS: 36 yo at 39 wga presented today for IOL for FGR. She was found to be 3-4cm and suspected to be in early labor. She received an epidural for pain control however cervix did not change. Pitocin was started and she underwent artificial rupture of membranes. She then progressed to complete and desired to push. FINDINGS: A viable female infant, weight pending with Apgars of 8 and 9 at 1 and 5 minutes respectively. SPECIMEN: Cord blood, placenta OPERATIVE REPORT: The patient progressed to 10 cm, 100% effaced and +2 station, pushed over intact perineum with anesthesia to deliver a viable female , weight and Apgars as above. Head of delivered in PAULA position. No nuchal cord was present. Body and shoulders were delivered without difficulty. was delivered to maternal abdomen and nursing staff. Delayed cord clamping was performed for 60 seconds. Cord was clamped and cut. Cord blood was obtained. Placenta delivered spontaneously intact with 3-vessel cord. IV oxytocin and fundal massage were given for excellent hemostasis. Vagina, cervix, perineum, and placenta were inspected. A second degree laceration was noted and repaired using 3-0 vicryl in the usual fashion. There was excellent hemostasis. Sponge and needle counts correct x2. No sponges were left behind. Mother and stable in immediate period. [facility] Vaginal Delivery Charge Vaginal Delivery Codes: 33872 global code for the antepartum, delivery, and post- Delivery Type Details: and 2nd Degree LAC
[2022-02-22] MEDS ORDERED: BENZOCAINE 20% AER SPR 82.5 GM CAN EXT PRN (23:01)
[2022-02-22] MEDS ORDERED: HYDROCORTISONE ACETATE 25 MG SUPP PR PRN (23:01)
[2022-02-22] MEDS ORDERED: DIPHTHERIA/TETANUS/PERTUSSIS 0.5 ML SYR/VIAL IM ONE (23:01)
[2022-02-22] MEDS ORDERED: bisacodyL 10 MG SUPP PR PRN (23:01)
[2022-02-23] MEDS: IBUPROFEN 600 MG TAB PO PRN ×5 (01:00→21:11)
[2022-02-23] MEDS: ACETAMINOPHEN 325 MG TAB PO PRN ×3 (05:15→13:37)
[2022-02-23] MEDS: ALBUTEROL HFA 8 GM INHALER INH SCH ×2 (07:11→20:25)
[2022-02-23] MEDS: PRENATAL VITAMIN 1 TAB PO SCH (07:49)
[2022-02-23] MEDS: DOCUSATE SODIUM 100 MG CAP PO SCH ×2 (07:49→21:09)
[2022-02-23] MEDS: FERROUS SULFATE 325 MG TAB PO SCH (07:49)
--- NOTE | 2022-02-23 07:51 | Obstetrical Progress Note ---
Date of Service February 23, 2022 Assessment & Plan (1) Status post vaginal delivery: 36 yo PP1 from , doing well -Meeting all pp milestones. Very crampy today, will give dose of oxy -B+/rubella immune/ -f/u 6 weeks for appt, continue routine pp care Subjective Ambulation: ambulating normally Voiding: no voiding problems Passing Gas:: Yes Diet Tolerance:: regular diet Lochia:: Moderate Feeding Type:: breast feeding Pain managed with medication but still crampy Review of Systems Denies fevers, chills, n/v, CASTILLO, CP, SOB Physical Exam Constitutional WD/WN, vitals as above no acute distress Respiratory normal respiratory effort, lungs clear to auscultation Cardiovascular RRR, no murmur, no edema Gastrointestinal (Abdomen) Percussion/Palpation: abdomen soft; abdomen nontender fundus firm at umbilicus and NT Musculoskeletal BLE symmetric, nonerythematous, nontender Results & Data ([facility]) Vital Signs (Past 12 Hours) Vital Signs Temp Pulse Pulse Resp BP BP BP 02/23/22 07:12 78 18 02/23/22 03:13 98.4 F 80 18 109/70 02/23/22 01:45 98.4 F 82 18 127/70 02/22/22 23:24 98.6 F 18 02/22/22 22:20 97.9 F 18 02/23/22 00:24 98 H 114/57 L 02/23/22 00:09 112 H 136/77 02/22/22 23:53 107 H 02/22/22 23:53 112/60 02/22/22 23:39 102 H 02/22/22 23:39 104/55 L 02/22/22 23:24 92 H 02/22/22 23:24 131/62 02/22/22 22:38 82 02/22/22 22:38 126/72 02/22/22 22:19 91 H 02/22/22 22:19 147/65 H 02/22/22 22:04 90 02/22/22 22:04 161/88 H 02/22/22 21:50 83 02/22/22 21:50 112/82 02/22/22 21:45 02/22/22 21:45 101 H 02/22/22 21:30 18 02/22/22 21:30 98.6 F 18 02/22/22 21:40 02/22/22 21:40 90 02/22/22 21:35 02/22/22 21:35 90 02/22/22 21:30 02/22/22 21:31 02/22/22 21:30 113 H 02/22/22 21:31 82 02/22/22 21:25 02/22/22 21:25 90 02/22/22 21:20 02/22/22 21:20 89 02/22/22 21:18 87 02/22/22 21:18 104/64 02/22/22 21:15 02/22/22 21:15 95 H 02/22/22 21:10 02/22/22 21:10 89 02/22/22 21:05 02/22/22 21:05 83 02/22/22 21:04 96 H 02/22/22 21:04 129/68 02/22/22 21:00 02/22/22 21:00 90 02/22/22 20:55 02/22/22 20:55 81 02/22/22 20:50 02/22/22 20:50 82 02/22/22 20:49 85 02/22/22 20:49 126/87 02/22/22 20:45 02/22/22 20:45 84 02/22/22 20:40 02/22/22 20:40 80 02/22/22 20:30 18 02/22/22 20:30 18 02/22/22 20:35 02/22/22 20:35 82 02/22/22 20:34 125/81 02/22/22 20:30 02/22/22 20:30 96 H 02/22/22 20:25 02/22/22 20:25 82 02/22/22 20:20 02/22/22 20:20 79 02/22/22 20:20 75 02/22/22 20:20 130/75 02/22/22 20:12 02/22/22 20:13 02/22/22 20:12 79 02/22/22 20:13 81 02/22/22 20:07 02/22/22 20:07 77 02/22/22 20:03 79 02/22/22 20:03 110/61 02/22/22 20:02 02/22/22 20:02 77 02/22/22 19:57 02/22/22 19:57 80 02/22/22 19:55 02/22/22 19:55 80 02/22/22 19:52 02/22/22 19:52 72 02/22/22 19:49 73 02/22/22 19:49 115/62 Pulse Ox O2 Del Method 02/23/22 07:12 97 Room Air 02/23/22 03:13 97 Room Air 02/23/22 01:45 Room Air 02/22/22 23:24 02/22/22 22:20 02/23/22 00:24 02/23/22 00:09 02/22/22 23:53 02/22/22 23:53 02/22/22 23:39 02/22/22 23:39 02/22/22 23:24 02/22/22 23:24 02/22/22 22:38 02/22/22 22:38 02/22/22 22:19 02/22/22 22:19 02/22/22 22:04 02/22/22 22:04 02/22/22 21:50 02/22/22 21:50 02/22/22 21:45 93 02/22/22 21:45 02/22/22 21:30 02/22/22 21:30 02/22/22 21:40 94 02/22/22 21:40 02/22/22 21:35 95 02/22/22 21:35 02/22/22 21:30 95 02/22/22 21:31 94 02/22/22 21:30 02/22/22 21:31 02/22/22 21:25 95 02/22/22 21:25 02/22/22 21:20 96 02/22/22 21:20 02/22/22 21:18 02/22/22 21:18 02/22/22 21:15 97 02/22/22 21:15 02/22/22 21:10 97 02/22/22 21:10 02/22/22 21:05 98 02/22/22 21:05 02/22/22 21:04 02/22/22 21:04 02/22/22 21:00 98 02/22/22 21:00 02/22/22 20:55 98 02/22/22 20:55 02/22/22 20:50 98 02/22/22 20:50 02/22/22 20:49 02/22/22 20:49 02/22/22 20:45 97 02/22/22 20:45 02/22/22 20:40 97 02/22/22 20:40 02/22/22 20:30 02/22/22 20:30 02/22/22 20:35 98 02/22/22 20:35 02/22/22 20:34 02/22/22 20:30 98 02/22/22 20:30 02/22/22 20:25 97 02/22/22 20:25 02/22/22 20:20 96 02/22/22 20:20 02/22/22 20:20 02/22/22 20:20 02/22/22 20:12 96 02/22/22 20:13 93 02/22/22 20:12 02/22/22 20:13 02/22/22 20:07 96 02/22/22 20:07 02/22/22 20:03 02/22/22 20:03 02/22/22 20:02 96 02/22/22 20:02 02/22/22 19:57 96 02/22/22 19:57 02/22/22 19:55 93 02/22/22 19:55 02/22/22 19:52 98 02/22/22 19:52 02/22/22 19:49 02/22/22 19:49
--- NOTE | 2022-02-23 08:39 | Anesthesia Procedure Note ---
Date of Service February 23, 2022 Anesthesia Post Epidural Note Vital Signs Vital Signs: Temp Pulse Resp BP Pulse Ox O2 Del Method 36.9 C 78 18 109/70 97 02/23/22 03:13 02/23/22 07:12 02/23/22 07:12 02/23/22 03:13 02/23/22 07:12 02/23/22 07:12 Pain Intensity Bilateral Abdomen: Pain Intensity: 8 Bilateral Episiotomy/Laceration: Pain Intensity: 4 Notes Mental Status: alert / awake / arousable and participated in evaluation Nausea / Vomiting: adequately controlled Pain: adequately controlled Airway Patency, RR, SpO2: stable & adequate BP & HR: stable & adequate Hydration State: stable & adequate Neuraxial Anesthesia: was administered and sensory block is resolving Anesthetic Complications: no major complications apparent Epidural: Removed without complications and With tip intact
[2022-02-23] MEDS ORDERED: FLUTICASONE/VILANTEROL 100/25MCG 14 PUFFS/INHALER INH SCH (09:00)
[2022-02-23] MEDS: FLUTICASONE/VILANTEROL 200/25MCG 14 PUFFS/INHALER INH SCH (09:30)
[2022-02-23] MEDS: UMECLIDINIUM BROMIDE 62.5MCG/BLISTER 7 PUFFS/INHALER INH SCH (09:30)
[2022-02-23] MEDS: oxyCODONE HCL IR 5 MG TAB (IMMEDIATE RELEASE) PO PRN ×4 (10:49→21:10)
[2022-02-23] MEDS ORDERED: bisacodyL 5 MG TABEC PO SCH (20:00)
[2022-02-24] MEDS: ALBUTEROL HFA 8 GM INHALER INH SCH (06:53)
--- NOTE | 2022-02-24 07:44 | Obstetrical Progress Note ---
Date of Service February 24, 2022 Assessment & Plan (1) Status post vaginal delivery: satisfactory exam will discharge to home today follow up in 6 weeks Subjective Ambulation: ambulating normally Voiding: no voiding problems Passing Gas:: Yes Diet Tolerance:: regular diet Lochia:: Small Feeding Type:: bottle feeding switched to bottle feeding since yesterday morning because the cramping with it was too painful. reports not painful since not nursing. Review of Systems All systems reviewed & are unremarkable except as noted in HPI & below Physical Exam Constitutional WD/WN, vitals as above Psychiatric A+Ox3, euthymic affect Genitourinary OB Exam Abdomen: + fundal height Fundus: + firm and + relation to umbilicus (2 below) Results & Data ([facility]) Vital Signs (Past 12 Hours) Vital Signs Temp Pulse Pulse Resp BP Pulse Ox O2 Del Method 02/24/22 06:54 73 16 99 Room Air 02/23/22 22:52 97.9 F 75 18 109/63 98 Room Air 02/23/22 22:02 79 18 97 Room Air 02/23/22 20:00 98.2 F 73 16 109/73 95
[2022-02-24] MEDS: DOCUSATE SODIUM 100 MG CAP PO SCH (08:18)
[2022-02-24] MEDS: PRENATAL VITAMIN 1 TAB PO SCH (08:18)
[2022-02-24] MEDS: FERROUS SULFATE 325 MG TAB PO SCH (08:18)
[2022-02-24] MEDS: FLUTICASONE/VILANTEROL 200/25MCG 14 PUFFS/INHALER INH SCH (08:30)
[2022-02-24] MEDS: UMECLIDINIUM BROMIDE 62.5MCG/BLISTER 7 PUFFS/INHALER INH SCH (08:30)
== END 2022-02-24 11:55 | disposition home or self-care (01) | DRG 807 ==
LOC: EDSTATUS 08:50 → 4S1 09:28 → 4E2 02-23 01:30
DX: O70.1 Second degree perineal laceration during delivery; O36.5930 Maternal care for other known or suspected poor fetal growth, third trimester, not applicable or unspecified; J45.909 Unspecified asthma, uncomplicated; O99.52 Diseases of the respiratory system complicating childbirth; Z37.0 Single live birth; Z3A.39 39 weeks gestation of pregnancy; O99.02 Anemia complicating childbirth